=== PATIENT | female | born 1990 | race Caucasian/White ===

== ENCOUNTER 2017-02-21 12:22 | Inpatient (IN) | payer MEDICAID ==
[~2017-02-21] VITALS: Ht 154.9 cm; Wt 75.3 kg
[~2017-02-21 12:22] MED LIST: IBUP-1542 PO; PREN-39 PO
[2017-02-21 13:08] VITALS: Ht 154.9 cm; Wt 75.3 kg
[2017-02-21 13:09] VITALS: BP 107/72; PULSE 80; RESP 18
--- NOTE | 2017-02-21 15:09 | RADRPT ---
PROCEDURE: US OB. CLINICAL INDICATION: Contractions TECHNIQUE: Multiple sonographic images of the pelvis were obtained. The images were reviewed on a PACS workstation. COMPARISON: No prior studies are available for comparison. FINDINGS: There is a single live intrauterine . cardiac activity is identified at a rate of 13 3 beats per minute. presentation is cephalic. Placenta is fundal grade 1 to II. Biophysical profile score is as follows: Breathing 2 Movements 2 Tone 2 Fluid volume 2 Amniotic fluid index = 18.9 cm Total biophysical profile score = 8/ IMPRESSION: Biophysical profile score = 8 RPTAT: HH .Brad Douglas MD, MD Date Time Electronically viewed and signed by .Brad Douglas MD, on 02/21/2017 15:08 .W/
--- NOTE | 2017-02-21 15:34 | TRIAGE ---
OB Triage Datetime Report Generated by CPN: 02/21/2017 15:34 Datetime: 02/21/2017 15:00 Maternal Assessment Level of Consciousness: Fully Conscious Labor Evaluation Frequency: OCCASSIONAL Monitor Mode: External Quality: Mild Resting Tone [place]: Relaxed Heart Rate FHR Baseline Rate: 130 Monitor Mode: External US Variability: Moderate 6-25 bpm Accelerations: 15X15 Decelerations: None Pain Assessment Pain Scale: 0 Pain Goal: 3 Membrane Status: Intact Vaginal Bleeding: None Datetime: 02/21/2017 14:00 Labor Evaluation Frequency: OCCASSIONAL Monitor Mode: External Duration (sec)2399: 50-90 Pattern: Normal: <= 5 Contractions in 10 Minutes Resting Tone [place]: Relaxed Contraction Comments: IRRITABILITY Heart Rate FHR Baseline Rate: 130 Monitor Mode: External US Variability: Moderate 6-25 bpm Accelerations: 15X15 Decelerations: None Category: Category I Datetime: 02/21/2017 13:32 Vaginal Exam Dilatation (cms): 1.0 Effacement (%): 50 Station: -3 Exam By: FAREEDA Membrane Status: Intact Datetime: 02/21/2017 13:05 Assessment Type: Triage Maternal Assessment Level of Consciousness: Fully Conscious DTR's/Clonus: DTRs 2+; No Clonus Headache: Denies Blurred Vision: No Respiratory Effort: Unlabored; Regular Rhythm; Equal Expansion Breath Sounds, Left: Clear and Equal Breath Sounds, Right: Clear and Equal Nausea/Vomiting: Denies RUQ Epigastric Pain: Denies Lower Extremities Edema: None Degree: None Upper Extremities Edema: None Degree: None Facial Edema: None Fall Risk Assessment History of Falling: (0) No Secondary Diagnosis: (0) No Ambulatory Aid: (0) Bedrest/Nurse Assist IV Therapy: (0) No Gait: (0) Normal/Bedrest/Immobile Mental Status: (0) Oriented to Own Ability Fall Score: 0 Fall Risk Score Definition: No Risk: No action required Datetime: 02/21/2017 13:03 Time of Arrival: 02/21/2017 12:17 EGA: 40.0 Arrived By: Ambulatory Arrived From: Office Chief Complaint: PT SENT FROM CLINIC TO R/O LABOR Movement: Present Contractions: Irregular Rupture of Membranes: Denies Vaginal Bleeding: None Vaginal Discharge: Denies Recent Sexual Intercouse: Denies Abdominal Trauma: Not Applicable Patient Complaints: Contractions; Cramping; Back Pain Time Provider Notified: 02/21/2017 14:03 Provider Notified: YESSICA Initial Plan: EFM/SVE/; NST, BPP Datetime: 02/21/2017 12:42 Monitor Mode: External Monitor Mode: External US
[2017-02-21] MEDS ORDERED: OXYTOCIN 30 UNITS/LR 500 ML IV PRN (17:00)
[2017-02-21] MEDS ORDERED: IBUPROFEN 600 MG TAB PO PRN (17:00)
[2017-02-21] MEDS ORDERED: LIDOCAINE 1% (MPF) 30 ML INJ INJ PRN (17:00)
[2017-02-21] MEDS ORDERED: METHYLERGONOVINE 0.2 MG INJ IM PRN (17:00)
[2017-02-21] MEDS ORDERED: MISOPROSTOL 200 MCG TAB PR PRN (17:00)
[2017-02-21] MEDS ORDERED: BUTORPHANOL 2 MG INJ IV PRN (17:00)
[2017-02-21] MEDS ORDERED: OXYTOCIN 30 UNITS/LR 500 ML IV SCH ×3 (17:00→23:00)
[2017-02-21] MEDS ORDERED: CARBOPROST 250 MCG INJ IM PRN (17:00)
[2017-02-21] MEDS ORDERED: LACTATED RINGER'S 1,000 ML IV PRN (17:00)
[2017-02-21] MEDS ORDERED: MINERAL OIL LIGHT 10 ML VIAL TOP PRN (17:00)
[2017-02-21] MEDS: LACTATED RINGER'S 1,000 ML IV SCH ×2 (17:25→21:09)
--- NOTE | 2017-02-21 17:49 | HP ---
Date/Time of Note Date/Time of Note DATE: 02/21/17 TIME: 17:46 OB - History Hx of Present Free Text/Dictation Admitted at 40 weeks gestation for elective induction Last Menstrual Period: May 03, 2017 Estimated Due Date: Feb 21, 2017 : 5 Para: 2 Spontaneous : 0 Therapeutic : 2 Ultrasounds: Normal mid trimester US Obstetrical Complications: None Medical Complications: None Past Family/Social History * Past Medical, Surgical, Family and Obstetric Histories reviewed from chart. Blood Type: O+ Rubella: immune RPR/VDRL: Negative GBS Status: Negative HBsAG: Negative OB Admission Exam Vital Signs Vital Signs Vital Signs Date Time Temp Pulse Resp B/P Pulse Ox O2 Delivery O2 Flow Rate FiO2 02/21/17 13:09 98.3 80 18 107/72 98 Room Air Physical Exam HEENT: WNL Heart: Rhythm Normal Lungs: Clear, Equal Abdomen: WNL Extremities: Normal Reflexes: Normal Cervical Dilatation: 1cm Effacement: 0% Station: -3 Membranes: Intact Heart Rate: 140's Accelerations: Accelerations Present Decelerations: No Decelerations Varibility: Marked Contractions on Admission: None OB Assessment/Plan Reason for admission: induction of labor Other Assessment: Active induction of labor at term Other plan: With start induction later today VAIBHAV SMYTH MD Feb 21, 2017 17:49
[2017-02-21 18:26] LABS: BASOPHIL # 0.1 10^3/ul (0.0-0.1); BASOPHILS % 0.5 % (0.0-2.0); EOSINOPHILS % 0.3 % (0.0-7.0); HEMATOCRIT 38.8 % (37.0-47.0); HEMOGLOBIN 13.2 g/dl (12.0-16.0); LYMPHOCYTES # 2.7 10^3/ul (0.8-2.9); LYMPHOCYTES % 25.8 % (15.0-51.0); MEAN CORPUSCULAR VOLUME 91.1 fl (82.0-101.0); MEAN PLATELET VOLUME 12.1 fl (7.4-10.4); MONOCYTE # 0.7 10^3/ul (0.3-0.9); MONOCYTES % 6.4 % (0.0-11.0); NEUTROPHIL # 6.9 10^3/ul (1.6-7.5); NEUTROPHILS % 66.6 % (39.0-77.0); PLATELET COUNT 201 10^3/UL (140-415); RED BLOOD COUNT 4.26 10^6/ul (4.20-5.40); RED CELL DISTRIBUTION WIDTH 13.2 % (11.5-14.5); WHITE BLOOD COUNT 10.3 10^3/ul (4.8-10.8)
[2017-02-21 18:49] LABS: INR 0.98
[2017-02-21 18:50] LABS: PARTIAL THROMBOPLASTIN TIME 27.3 Sec (25.0-35.0)
[2017-02-22] MEDS: LACTATED RINGER'S 1,000 ML IV SCH ×3 (05:08→21:54)
[2017-02-22 09:21] LABS: BARBITURATES Negative (NEGATIVE); BENZODIAZEPINES Negative (NEGATIVE); CANNABINOIDS Negative (NEGATIVE); COCAINE Negative (NEGATIVE); OPIATES Negative (NEGATIVE)
[2017-02-22] MEDS ORDERED: DINOPROSTONE 10 MG VAG SUPP VAG ONE (11:00)
[2017-02-23] MEDS ORDERED: FENTAnyl 2MCG/ML-ROPIV 0.2% 100 ML ONE (02:40)
[2017-02-23] MEDS ORDERED: FENTAnyl 2MCG/ML-ROPIV 0.2% 100 ML BAG EPI SCH (03:00)
[2017-02-23] MEDS ORDERED: NALOXONE (0.4 MG/ML) INJ IV PRN (03:00)
[2017-02-23] MEDS ORDERED: MISOPROSTOL 200 MCG TAB PR PRN (06:30)
[2017-02-23] MEDS ORDERED: LANOLIN 7 GM TUBE TOP PRN (06:30)
[2017-02-23] MEDS ORDERED: HYDROCODONE/APAP (5/325) TAB PO PRN ×2 (06:30)
[2017-02-23] MEDS ORDERED: BENZOCAINE 20% 56 ML SPRAY TOP PRN (06:30)
[2017-02-23] MEDS ORDERED: CARBOPROST 250 MCG INJ IM PRN (06:30)
[2017-02-23] MEDS ORDERED: OXYTOCIN 30 UNITS/LR 500 ML IV PRN (06:30)
[2017-02-23] MEDS ORDERED: DIBUCAINE 1% 30 GM OINT PR PRN (06:30)
[2017-02-23] MEDS ORDERED: METHYLERGONOVINE 0.2 MG INJ IM PRN (06:30)
[2017-02-23] MEDS ORDERED: WITCH HAZEL/GLYCERIN PAD PR PRN (06:30)
--- NOTE | 2017-02-23 06:30 | LDN ---
Date/Time of Note Date/Time of Note DATE: 02/23/17 TIME: 06:29 Delivery Summary Placenta Delivered: Spontaneously Meconium: none Perineal laceration: 0 Anesthesia type: Epidural Estimated blood loss: 200 Sponge & Needle done & correct: Yes All needle counts correct: Yes Any foreign bodies felt in the: No Problems: Delivery Information Sex Infant Sex: male Apgars 1 Minute: 9 5 Minute: 9 Suctioning Nose & mouth suctioned at aliza: Yes Umbilical Cord Umbilical cord with: 3 Vessels Cord presentations: no nuchal cord Cord Blood was obtained: Yes Mother & Baby Disposition Disposition Mom & Baby to Maternity; Good: Yes PAPA ELDER Feb 23, 2017 06:30
[2017-02-23] MEDS: OXYTOCIN 30 UNITS/LR 500 ML IV SCH ×2 (06:36→08:05)
--- NOTE | 2017-02-23 06:53 | DELSUM ---
Delivery Summary A-C Datetime Report Generated by CPN: 02/23/2017 06:52 DELIVERY PERSONNEL Principal Java Software Engineer: Lenz, Kary MATERNAL INFORMATION Delivery Anesthesia: Epidural Medications in Delivery: 30 UNITS PITOCIN IN 500 ML LR Estimated Blood Loss (ml): 200 Placenta Cultured: No Maternal Complications: None LABOR SUMMARY EDC: 02/21/2017 00:00 No. Babies in Womb: 1 Attempted: No Labor Anesthesia: Epidural LABOR INFORMATION Reason for Induction: Other Reason for Induction- Other: Postdates Onset of Labor: 02/21/2017 03:00 Complete Dilatation: 02/23/2017 06:09 Cervical Ripening Agents: Cervidil Oxytocin: Induction Group B Beta Strep: Negative Group B Beta Strep: Negative Antibiotics # of Doses: 0 Steroids Given: None Reason Steroids Not Administered: Not Applicable Other Reason Not Administered: Term MEMBRANES Membranes Rupture Method: Spontaneous Rupture of Membranes: 02/23/2017 06:05 Length of Rupture (hr): 0.23 Amniotic Fluid Color: Clear Amniotic Fluid Amount: Moderate Amniotic Fluid Odor: None STAGES OF LABOR Stage 1 hr: 51 Stage 1 min: 9 Stage 2 hr: 0 Stage 2 min: 10 Stage 3 hr: 0 Stage 3 min: 2 Total Time in Labor hr: 51 Total Time in Labor min: 21 VAGINAL DELIVERY Episiotomy: None Laceration Extension: N/A Laceration Type: None Laceration Repair: Not Applicable Initial Vag Sponge Count: 10 Final Vag Sponge Count: 10 Initial Vag Sharps Count: 1 Final Vag Sharps Count: 1 Sponge Count Correct: Yes Sharps Count Correct: Yes BABY A INFORMATION Delivery Date/Time: 02/23/2017 06:19 Method of Delivery: Vaginal Method of Delivery: Vaginal Born in Route : No : N/A Forceps: N/A Vacuum Extraction: N/A Shoulder Dystocia : N/A SHOULDER DYSTOCIA BABY A Delivery Date/Time: 02/23/2017 06:19 PRESENTATION/POSITION BABY A Presentation: Cephalic Presentation: Cephalic Cephalic Presentation: Vertex Breech Presentation: N/A PLACENTA INFORMATION BABY A Placenta Delivery Time : 02/23/2017 06:21 Placenta Method of Delivery: Spontaneous Placenta Status: Delivered SCORES BABY A Heart Rate 1 min: >100 bpm Resp Effort 1 min: Good Cry Reflex Irritability 1 min: Cough/Sneeze/Pulls Away Muscle Tone 1 min: Active Motion Color 1 min: Body [place], Extremit Blue Resuscitation Effort 1 min: Tactile Stimulation SCORE 1 MIN: 9 Heart Rate 5 min: >100 bpm Resp Effort 5 min: Good Cry Reflex Irritability 5 min: Cough/Sneeze/Pulls Away Muscle Tone 5 min: Active Motion Color 5 min: Body [place], Extremit Blue Resuscitation Effort 5 min: Tactile Stimulation SCORE 5 MIN: 9 INFANT INFORMATION BABY A Gestational Age at Delivery: 40.1 Gestational Status: Full Term- 39- 40.6 Weeks Outcome : Liveborn Condition : Stable Infant Sex: Male Sex: Male IDENTIFICATION/MEDS BABY A ID Band Number: [id number] ID Band Location: Right Leg; Left Arm Sensor Number: [id number] Sensor Location : Cord Clamp Vitamin K Given : Not Given Erythromycin Given: Not Given WEIGHT/LENGTH BABY A Infant Birthweight (gm): 3065 Infant Weight (lb): 6 Weight (oz): 12 Length (in): 20.00 Length (cm): 50.80 CORD INFORMATION BABY A No. Cord Vessels: 3 Nuchal Cord : N/A Cord Blood Taken: Yes Banking/Donate Info: NO Suction: Mouth; Nose ASSESSMENT BABY A Infant Complications: None Physical Findings at Delivery: Within Normal Limits Respirations: Appears Normal Changer Fixer/ALS Called : No Infant Care By: Keiry MALAVE Transferred To: [facility]
--- NOTE | 2017-02-23 06:54 | DELSUM ---
Delivery Summary A-C Datetime Report Generated by CPN: 02/23/2017 06:53 DELIVERY PERSONNEL Category Development Manager: Lenz, Kary MATERNAL INFORMATION Delivery Anesthesia: Epidural Medications in Delivery: 30 UNITS PITOCIN IN 500 ML LR Estimated Blood Loss (ml): 200 Placenta Cultured: No Maternal Complications: None LABOR SUMMARY EDC: 02/21/2017 00:00 No. Babies in Womb: 1 Attempted: No Labor Anesthesia: Epidural LABOR INFORMATION Reason for Induction: Other Reason for Induction- Other: Postdates Onset of Labor: 02/21/2017 03:00 Complete Dilatation: 02/23/2017 06:09 Cervical Ripening Agents: Cervidil Oxytocin: Induction Group B Beta Strep: Negative Group B Beta Strep: Negative Antibiotics # of Doses: 0 Steroids Given: None Reason Steroids Not Administered: Not Applicable Other Reason Not Administered: Term MEMBRANES Membranes Rupture Method: Spontaneous Rupture of Membranes: 02/23/2017 06:05 Length of Rupture (hr): 0.23 Amniotic Fluid Color: Clear Amniotic Fluid Amount: Moderate Amniotic Fluid Odor: None STAGES OF LABOR Stage 1 hr: 51 Stage 1 min: 9 Stage 2 hr: 0 Stage 2 min: 10 Stage 3 hr: 0 Stage 3 min: 2 Total Time in Labor hr: 51 Total Time in Labor min: 21 VAGINAL DELIVERY Episiotomy: None Laceration Extension: N/A Laceration Type: None Laceration Repair: Not Applicable Initial Vag Sponge Count: 10 Final Vag Sponge Count: 10 Initial Vag Sharps Count: 1 Final Vag Sharps Count: 1 Sponge Count Correct: Yes Sharps Count Correct: Yes BABY A INFORMATION Delivery Date/Time: 02/23/2017 06:19 Method of Delivery: Vaginal Method of Delivery: Vaginal Born in Route : No : N/A Forceps: N/A Vacuum Extraction: N/A Shoulder Dystocia : N/A SHOULDER DYSTOCIA BABY A Delivery Date/Time: 02/23/2017 06:19 PRESENTATION/POSITION BABY A Presentation: Cephalic Presentation: Cephalic Cephalic Presentation: Vertex Breech Presentation: N/A PLACENTA INFORMATION BABY A Placenta Delivery Time : 02/23/2017 06:21 Placenta Method of Delivery: Spontaneous Placenta Status: Delivered SCORES BABY A Heart Rate 1 min: >100 bpm Resp Effort 1 min: Good Cry Reflex Irritability 1 min: Cough/Sneeze/Pulls Away Muscle Tone 1 min: Active Motion Color 1 min: Body [place], Extremit Blue Resuscitation Effort 1 min: Tactile Stimulation SCORE 1 MIN: 9 Heart Rate 5 min: >100 bpm Resp Effort 5 min: Good Cry Reflex Irritability 5 min: Cough/Sneeze/Pulls Away Muscle Tone 5 min: Active Motion Color 5 min: Body [place], Extremit Blue Resuscitation Effort 5 min: Tactile Stimulation SCORE 5 MIN: 9 INFANT INFORMATION BABY A Gestational Age at Delivery: 40.1 Gestational Status: Full Term- 39- 40.6 Weeks Outcome : Liveborn Condition : Stable Infant Sex: Male Sex: Male IDENTIFICATION/MEDS BABY A ID Band Number: [id number] ID Band Location: Right Leg; Left Arm Sensor Number: [id number] Sensor Location : Cord Clamp Vitamin K Given : Not Given Erythromycin Given: Not Given WEIGHT/LENGTH BABY A Infant Birthweight (gm): 3065 Infant Weight (lb): 6 Weight (oz): 12 Length (in): 20.00 Length (cm): 50.80 CORD INFORMATION BABY A No. Cord Vessels: 3 Nuchal Cord : N/A Cord Blood Taken: Yes Banking/Donate Info: NO Suction: Mouth; Nose ASSESSMENT BABY A Infant Complications: None Physical Findings at Delivery: Within Normal Limits Respirations: Appears Normal Winding Inspector/ALS Called : No Infant Care By: Keiry MALAVE Transferred To: [facility]
[2017-02-23 09:20] VITALS: BP 104/63; PULSE 85; RESP 18
[2017-02-23] MEDS: LACTATED RINGER'S 1,000 ML IV SCH ×2 (09:40→17:00)
[2017-02-23] MEDS: IBUPROFEN 600 MG TAB PO SCH ×3 (11:41→23:51)
[2017-02-23] MEDS: LACTATED RINGER'S 1,000 ML IV* SCH ×3 (11:42→22:30)
[2017-02-23 16:00] VITALS: BP 102/67; PULSE 76; RESP 18
[2017-02-23 19:45] VITALS: BP 103/66; PULSE 80; RESP 20
[2017-02-24] MEDS: LACTATED RINGER'S 1,000 ML IV SCH (01:00)
[2017-02-24 04:11] VITALS: BP 107/71; PULSE 72; RESP 21
[2017-02-24] MEDS: IBUPROFEN 600 MG TAB PO SCH ×4 (05:32→23:33)
[2017-02-24 08:03] VITALS: BP 101/70; PULSE 70; RESP 18
[2017-02-24] MEDS ORDERED: INFLUENZA VIRUS VACCINE 0.5 ML (DISPENSING) IM* ONE (09:00)
[2017-02-24 09:01] LABS: BASOPHILS % 0.4 % (0.0-2.0); EOSINOPHILS % 0.3 % (0.0-7.0); HEMATOCRIT 34.5 % (37.0-47.0); HEMOGLOBIN 11.4 g/dl (12.0-16.0); LYMPHOCYTES # 2.2 10^3/ul (0.8-2.9); LYMPHOCYTES % 25.1 % (15.0-51.0); MEAN CORPUSCULAR HEMOGLOBIN 30.2 pg (29.0-33.0); MEAN CORPUSCULAR VOLUME 91.5 fl (82.0-101.0); MONOCYTE # 0.5 10^3/ul (0.3-0.9); NEUTROPHILS % 67.8 % (39.0-77.0); PLATELET COUNT 154 10^3/UL (140-415); RED BLOOD COUNT 3.77 10^6/ul (4.20-5.40); RED CELL DISTRIBUTION WIDTH 12.9 % (11.5-14.5); WHITE BLOOD COUNT 8.9 10^3/ul (4.8-10.8)
--- NOTE | 2017-02-24 15:36 | DS ---
Date/Time of Note Date/Time of Note Home today or next day DATE: 02/24/17 TIME: 15:36 Obstetrical Discharge Record Final Diagnosis Final Diagnosis: Term delivered Other Final Diagnosis Status post vaginal delivery Complications Augmentation: Yes Condition on Discharge Physical Assessment Last Vitals: See nurse's notes Voiding: Yes Bowel Movement: Yes Breast: Soft, non-tender, Filling Fundus: Firm Abdomen and Incision: Soft bowel sounds present Fundus is firm at bellybutton Episiotomy: Not applicable Calf Tenderness: No Patient Condition: Good VAIBHAV SMYTH MD Feb 24, 2017 15:36
--- NOTE | 2017-02-24 15:37 | PD.PPDC ---
ESCALATOR SERVICE MECHANIC Discharge Instruction Provider Information Physician Information 26-year-old female had vaginal delivery Diagnosis Final Diagnosis: Status post vaginal delivery Condition Patient Condition: Good Diet Diet: Resume Regular Diet Activity/Restrictions Activity: Normal Activity May Shower Restrictions: Nothing in the Vagina Return to Work or School: Apr 15, 2017 Follow-up Follow-up with Physician: 4, Week/Weeks Return to clinic for OB Instructions: Breast Tenderness Depression Comment: Pelvic rest for 6 weeks VAIBHAV SMYTH MD Feb 24, 2017 15:37
[2017-02-24] MEDS ORDERED: IBUP-1542 PO (15:38)
[2017-02-24 16:00] VITALS: BP 99/70; PULSE 83; RESP 18
[2017-02-24 20:20] VITALS: BP 120/81; PULSE 80; RESP 19
[2017-02-25] MEDS: LACTATED RINGER'S 1,000 ML IV* SCH (01:12)
[2017-02-25] MEDS: LACTATED RINGER'S 1,000 ML IV SCH (01:12)
[2017-02-25 04:00] VITALS: BP 101/63; PULSE 73; RESP 19
[2017-02-25] MEDS: IBUPROFEN 600 MG TAB PO SCH ×2 (05:41→11:44)
[2017-02-25 08:17] VITALS: BP 117/68; PULSE 80; RESP 18
[2017-02-25] MEDS ORDERED: VARICELLA VACCINE LIVE/PF 1,350 UNIT/0.5 ML ML SC* ONE (09:00)
[2017-02-25] MEDS ORDERED: MEASLES,MUMPS,RUBELLA VACCINE INJ SC* ONE (09:00)
[2017-02-25] MEDS ORDERED: DIPHTH/TET/ACEL PERTUSS (ADULT) 0.5 ML VIAL IM* ONE (09:00)
== END 2017-02-25 14:45 | disposition home or self-care (01) | DRG 775 ==
LOC: L-D 12:22 → OBT 12:22 → L-D 15:20 → OBT 15:20 → PP1 02-23 09:55
PROVIDERS: ADMIT Obstetrics & Gynecology; ATTEND Obstetrics & Gynecology
PROC: 4A1HXCZ Monitoring of Products of Conception, Cardiac Rate, External Approach (ICD-10-PCS; 2017-02-21)
PROC: 3E0P7VZ Introduction of Hormone into Female Reproductive, Via Natural or Artificial Opening (ICD-10-PCS; 2017-02-21)
PROC: 10E0XZZ Delivery of Products of Conception, External Approach (ICD-10-PCS; principal; 2017-02-23)
PROC: 3E0234Z Introduction of Serum, Toxoid and Vaccine into Muscle, Percutaneous Approach (ICD-10-PCS; 2017-02-24)
PROC: 3E0234Z Introduction of Serum, Toxoid and Vaccine into Muscle, Percutaneous Approach (ICD-10-PCS; 2017-02-25)
DX: O48.0 Post-term pregnancy (principal); Z23 Encounter for immunization; Z37.0 Single live birth; Z3A.40 40 weeks gestation of pregnancy
CPT/HCPCS: 62319; 76818; 80307; 85025; 85610; 85730; 86592; 86900; 86901; 90686; 90715; 90716; G0463; J2590; J3010; J7120